=== PATIENT | female | born 1995 | race Caucasian/White ===

== ENCOUNTER 2024-10-29 08:24 | Emergency (ER) | payer BC ==
[2024-10-29] MEDS: Ondansetron 4 MG/2 ML SDV IVPUSH ONE (09:24)
[2024-10-29] MEDS: Ketorolac 30 MG/ML SDV IVPUSH ONE (09:24)
[2024-10-29] MEDS: Sodium Chloride 0.9% 1,000 ML IV SCH (09:24)
[2024-10-29] MEDS: Sodium Chloride 0.9% 10 ML Syringe FLUSH PRN (09:25)
[2024-10-29 09:27] LABS: BASOPHILS PERCENT AUTO 0.4 % (0.0-1.0); EOSINOPHILS PERCENT AUTO 0.4 % (0.0-6.0); HEMATOCRIT 41.2 % (37.0-47.0); HEMOGLOBIN 13.9 gm/dl (12.0-16.0); IMMATURE GRAN ABSOLUTE AUTO 0.02 K/mm3 (0.00-0.05); IMMATURE GRAN PERCENT AUTO 0.4 % (0.0-0.4); LYMPHOCYTES ABSOLUTE AUTO 0.9 K/mm3 (1.0-4.8); LYMPHOCYTES PERCENT AUTO 16.5 % (24.0-44.0); MEAN CORPUSCULAR HEMOGLOBIN 30.4 pg (28.0-32.0); MEAN CORPUSCULAR HGB CONC 33.7 g/dl (32.0-36.0); MEAN CORPUSCULAR VOLUME 90.2 fl (83.0-99.0); MEAN PLATELET VOLUME 11.5 fl (9.4-12.3); MONOCYTES ABSOLUTE AUTO 0.3 K/mm3 (0.0-0.8); MONOCYTES PERCENT AUTO 5.8 % (0.0-8.0); NEUTROPHILS ABSOLUTE AUTO 4.4 K/mm3 (1.8-7.7); NEUTROPHILS PERCENT AUTO 76.5 % (41.0-71.0); PLATELET COUNT,PLT 153 K/mm3 (150-400); RED BLOOD CELL COUNT 4.57 M/mm3 (4.10-5.30); WHITE BLOOD CELL COUNT,WBC 5.71 K/mm3 (3.9-11.3)
[2024-10-29] MEDS: cefTRIAXone 2 GM Vial IVPUSH ONE (09:42)
[2024-10-29 09:51] LABS: A/G RATIO 0.8 (1-2); ALANINE AMINOTRANSFERASE,ALT 100 U/L (14-59); ALBUMIN 3.7 g/dl (3.4-5.0); ALKALINE PHOSPHATASE 71 U/L (46-116); ANION GAP 12.9 (5-15); ASPARTATE AMNIOTRANSFERASE,AST 76 U/L (15-37); BILIRUBIN TOTAL 0.5 mg/dL (0.2-1.0); BLOOD UREA NITROGEN,BUN 7 mg/dL (7-18); BUN/CREATININE RATIO 7.8 (14-18); C-REACTIVE PROTEIN 14.36 mg/dL (<0.30); CALCIUM 8.8 mg/dL (8.5-10.1); CARBON DIOXIDE,CO2 26 mEq/L (21-32); CHLORIDE,CL 101 mEq/L (98-107); CREATININE 0.9 mg/dL (0.55-1.02); EST CRCL DRUG DOSING (CG) 75.61 mL/min; ESTIMATED GFR 88 mL/min (>60); GLUCOSE RANDOM 106 mg/dL (70-99); POTASSIUM,K 3.9 mEq/L (3.5-5.1); PROTEIN TOTAL,TP 8.1 g/dl (6.4-8.2); SODIUM,NA 136 mEq/L (136-145)
[2024-10-29 09:52] LABS: TROPONIN I HIGH SENSITIVITY < 4 pg/mL (<=51)
[2024-10-29 10:17] LABS: LACTIC ACID 0.9 mmol/L (0.4-2.0)
[2024-10-29] MEDS: Albuterol 6.7 GM Inhaler INH ONE (11:19)
== END 2024-10-29 11:45 | disposition home or self-care (01) ==
LOC: JD.ED 08:24
DX: J18.9 Pneumonia, unspecified organism (principal); Z79.899 Other long term (current) drug therapy
CPT/HCPCS: 36415; 71046; 80053; 83605; 83735; 84484; 85025; 86140; 86308; 87040; 87428; 93005; 94640; 96361; 96374; 96375; 99285; A9270; J0696; J1885; J2405; J7030; 93010; 99284